=== PATIENT | male | born 1995 | race Caucasian/White ===

== ENCOUNTER 2020-02-28 01:10 | Emergency (ER) | payer SELFPAY ==
[~2020-02-28] VITALS: Ht 177.8 cm; Wt 68.0 kg
[2020-02-28 01:11] VITALS: BP 134/83
[2020-02-28] MEDS ORDERED: AMOX/CLAVULANATE 875 MG TABLET ONE (01:28)
[2020-02-28] MEDS ORDERED: AMOX/CLAVULANATE 875 MG TABLET PO ONE (01:30)
== END 2020-02-28 01:34 | disposition home or self-care (01) ==
LOC: ER 01:12
DX: S41.131A Puncture wound without foreign body of right upper arm, initial encounter (principal); Z59.0 Homelessness; Y04.1XXA Assault by human bite, initial encounter; Y93.89 Activity, other specified; Y92.89 Other specified places as the place of occurrence of the external cause; Y99.8 Other external cause status